=== PATIENT | female | born 1990 | race Caucasian/White ===

== ENCOUNTER 2024-09-16 15:19 | Day surgery (SDC) | payer OTHER, SELFPAY ==
[2024-09-16] VITALS (7 sets, daily range): BP systolic 127–143; BP diastolic 85–102; PULSE 63–98; RESP 14–18; TEMP 36.6–37.1; O2SAT 99–100; BMI 31.3
--- NOTE | 2024-09-16 15:48 | PD.EDRME ---
Rapid Medical Screening Exam RME Arrival date/time: 09/16/24 15:19 33-year-old female with no known medical history presents to the emergency room with a chief complaint of vaginal spotting and pelvic cramping. Patient states she was seen by her HIGH SCHOOL SPECIAL EDUCATION TEACHER Dr Barbosa and told she is having a spontaneous . Patient was told to come to the emergency room today if she began to develop vaginal bleeding or pelvic pain. I have greeted and performed a focused initial assessment of this patient. A comprehensive ED assessment and evaluation of the patient, analysis of all test results, and completion of the medical decision making process will be conducted by additional ED providers. Chief Complaint: Vaginal Bleeding Time Seen by Provider: 09/16/24 15:42 Vital signs: Vital Signs Temperature 98.7 F 09/16/24 15:45 Pulse Rate 98 09/16/24 15:45 Respiratory Rate 18 09/16/24 15:45 Blood Pressure 136/97 H 09/16/24 15:45 Pulse Oximetry (%) 100 09/16/24 15:45 Oxygen Delivery Method Room Air 09/16/24 15:45 Vital signs reviewed by provider: Yes
--- NOTE | 2024-09-16 16:21 | XR_ITS ---
Examination: OB Transvaginal ultrasound of the pelvis, complete Technique: Transvaginal sonographic images pelvis performed using pathak scale imaging Exam date and time: September 16, 2024 1625 hours INDICATIONS: Vaginal bleeding pelvic cramping today FINDINGS: Uterus 8.3 cm retroverted Intrauterine gestational sac pole 1.2 cm corresponds to 7 weeks 3 days gestational age No cardiac motion Uterine area of fibroid degeneration 41 mm Right ovary 2.4 cm arterial flow Left ovary 2.3 cm arterial flow IMPRESSION: Intrauterine gestation corresponding to 7 weeks 3 days gestational age No cardiac motion consistent with demise Recommend short-term follow-up pelvic sonography.
[2024-09-16 16:27] LABS: Basophils # (Auto) 0.1 Thou/mm3 (0.0-0.2); Basophils % (Auto) 1 % (0-2.5); Eosinophils # (Auto) 0.3 Thou/mm3 (0.0-0.5); Eosinophils % (Auto) 4 % (0-10); Hemoglobin 9.8 g/dL (12.0-16.0); Immature Granulocytes % (Auto) 0 % (0-0); Immature Granulocytes Auto 0.01 Thou/mm3 (0.00-0.00); Lymphocytes # (Auto) 1.9 Thou/mm3 (1.0-4.8); Lymphocytes % (Auto) 26 % (10-50); Mean Corpuscular HGB Conc 31.6 g/dl (31.0-37.0); Mean Corpuscular Hemoglobin 23.1 pg (25.0-35.0); Mean Corpuscular Volume 73 fL (80-100); Monocytes # (Auto) 0.4 Thou/mm3 (0.0-0.8); Monocytes % (Auto) 5 % (0-12); Neutrophils # (Auto) 4.8 Thou/mm3 (1.8-7.7); Neutrophils % (Auto) 64 % (37-80); Nucleated Red Blood Cell % 0 /100 WBC (0); Platelet Count 287 Thou/mm3 (140-440); RDW Standard Deviation 40.2 fL (36.4-46.3); Red Blood Count 4.24 Miln/mm3 (4.00-5.20); White Blood Count 7.5 Thou/mm3 (3.6-11.0)
[2024-09-16 16:54] LABS: Alanine Aminotransferase 14 U/L (10-49); Albumin, Serum 4.3 gm/dL (3.5-5.0); Albumin/Globulin Ratio 1.7 (1.2-2.2); Alkaline Phosphatase 74 U/L (46-116); Anion Gap 6 (7-16); Aspartate Amino Transferase 15 U/L (0-34); BUN/Creatinine Ratio 19 Ratio (12-20); Bilirubin,Total 0.3 mg/dL (0.3-1.2); Blood Urea Nitrogen 13 mg/dL (9-23); Calcium 9.1 mg/dL (8.3-10.6); Calcium (Corrected) 9.1 mg/dL (8.5-10.1); Carbon Dioxide 28.4 mMol/L (20.0-31.0); Chloride 105 mMol/L (98-107); Creatinine (Component) 0.7 mg/dL (0.6-1.3); Estimated Creatinine Clearance 132.2 mL/min (>60); Globulin 2.6 gm/dL (2.3-3.5); Glucose 84 mg/dL (74-106); Osmolality,Calculated 276 (275-295); Potassium 3.7 mMol/L (3.4-5.1); Sodium 139 mMol/L (136-145); Total Protein 6.9 gm/dL (5.7-8.2); eGFR > 60 See Note
[2024-09-16 17:09] LABS: Beta HCG,Quantitative 6918 mIU/mL (<5.0)
[2024-09-16 17:44] LABS: Collection Type, Urine Clean Catch
--- NOTE | 2024-09-16 18:42 | EDNOTE_ITS ---
ED OB Contraction Preg RMI/HPI General Chief complaint: Vaginal Bleeding Stated complaint: SENT BY OBGYN VAGINAL BLEEDING TODAY 11WK PREGN Time Seen by Provider: 09/16/24 15:42 Arrival date/time: 09/16/24 15:19 RME / HPI RME / HPI Narrative: 33-year-old female with no known medical history presents to the emergency room with a chief complaint of vaginal spotting and pelvic cramping. Onset of symptoms earlier today. Severity of symptoms mild. Patient states she was seen by her PATIENT CENTERED CARE SPECIALIST Dr Barbosa and told she is having a spontaneous . Patient was told to come to the emergency room today if she began to develop vaginal bleeding or pelvic pain. Denies any other complaints. Patient is 2 para 1. About 11 weeks . Related Data Allergies Allergy/AdvReac Type Severity Reaction Status Date / Time No Known Allergies Allergy Verified 09/16/24 15:22 Review of Systems Review of Systems Narrative Review of Systems: Review of system reviewed and within normal limits except mentioned in HPI ED Exam Narrative Physical exam: VITAL SIGNS: Reviewed. GENERAL APPEARANCE: Alert and interactive, follows commands, no acute distress, HEAD AND FACE: Non-traumatic. ENT: PERRL, pink conjunctivitis, eyelid no trauma, Mucous membrane moist. NECK: Supple, nontender, no nuchal rigidity. CHEST: No tenderness, no crepitus, no paradoxical movement, no retractions. LUNGS: Clear, well ventilated, symmetric, no rales, no wheezing, no ronchi, no stridor, good breath sounds bilaterally. HEART: Regular rate, regular rhythm, no murmur, no gallops. ABDOMEN: Soft, positive bowel sounds, nondistended, no guarding, nontender, no rebound, no masses, RECTAL: Deferred. GENITAL: Deferred. NEUROLOGICAL: Gross motor function intact sensory function intact, Appropriate f or age. MUSCULOSKELETAL: low back nontender, full range of motion. EXTREMITIES: Nontender, full range of motion. SKIN: Color pink, dry, no rash, no lacerations, no abrasions, no contusions. LYMPHATICS: Deferred. Course Quality Measures none Orders Category Date Time Status COVID-19 Screening Questionnaire NOW Care 09/16/24 18:46 Active Decision to Admit X1 Care 09/16/24 18:46 Active IV [Insert IV] STAT Care 09/16/24 18:46 Active US OB transvaginal Stat Exams 09/16/24 16:21 Completed ABO/RH Type Stat Lab 09/16/24 16:00 Completed Beta HCG,Quantitative Stat Lab 09/16/24 16:00 Completed CBC Stat Lab 09/16/24 16:00 Completed CMP [Comprehensive Metabolic Panel] Stat Lab 09/16/24 16:00 Completed UA [Urinalysis] Stat Lab 09/16/24 17:37 Received Vital Signs Vital signs: Vital Signs Temperature 98.7 F 09/16/24 15:45 Pulse Rate 98 09/16/24 15:45 Respiratory Rate 18 09/16/24 15:45 Blood Pressure 136/97 H 09/16/24 15:45 Pulse Oximetry (%) 100 09/16/24 15:45 Oxygen Delivery Method Room Air 09/16/24 15:45 Vaginal Bleeding MDM Narrative MDM Narrative: 33-year-old female with no known medical history presents to the emergency room with a chief complaint of vaginal spotting and pelvic cramping. Onset of symptoms earlier today. Severity of symptoms mild. Patient states she was seen by her PATIENT CENTERED CARE SPECIALIST Dr Barbosa and told she is having a spontaneous . Patient was told to come to the emergency room today if she began to develop vaginal bleeding or pelvic pain. Denies any other complaints. Patient is 2 para 1. About 11 weeks . Ultrasound of showed about 7 weeks gestation, with no cardiac activity noted. Patient's hemoglobin was noted to be 9.8, hematocrit of 31. Patient's hCG today was noted with [id number] Barbosa, who will examine the patient in the emergency room and for D&C Patient data External records reviewed:: None Clinical information provided by:: patient Social determinants that could affect healthcare access:: none Patient has the following chronic illnesses:: None How is presenting disease/condition affected by chronic disease/condition?: no chronic disease Evaluation data The following diagnostics were reviewed and interpreted by me:: lab results and radiology exam(s) Lab and/or radiology exams considered but not ordered:: None Interpretation Summary: See results in MDM Medications / Prescriptions Medications or Prescriptions considered but not ordered:: None Medication administrations:: None Consultations Consultation(s) initiated? (list below): Yes Consultation #1 (Physician, Specialty, Details): Dr Barbosa, PATIENT CENTERED CARE SPECIALIST thank you Diagnosis Vaginal Bleeding Differential Diagnosis: missed , threatened , incomplete and other (Missed ) Most likely diagnosis given after review of the tests above:: Missed Admission Indicated Admission indicated?: indicated Explain why admission is indicated or not indicated:: For D&C Admission Request Was there a request for admission?: Yes Admission Attestation Admission request attestation: Dr Barbosa agrees to accept the patient for admission. Disposition Plan Disposition Plan: Admit Discharge Plan Prescriptions/Referrals Referrals: No Primary/Family,Physician [Primary Care Provider] - In 1 week Problem List Clinical Impression: Missed Patient/Caregiver Discharge Instructions Print Language: South African
[2024-09-16 18:48] LABS: Bilirubin,Urine Negative (Negative); Blood,Urine 2+ (Negative); Clarity,Urine Clear (Clear/Hazy); Color,Urine Yellow (Lt Yel-Yel); Glucose, Urine Negative (Negative); Ketones,Urine Negative (Negative); Leukocyte Esterase,Urine Negative (Negative); Nitrite,Urine Negative (Negative); Protein,Urine Negative (Neg - Trace); RBC,Urine 4 /hpf (0-3); Specific Gravity,Urine 1.024 (1.001-1.035); Squamous Epithelial Cell,Urine 1 /hpf (0-5); Urobilinogen,Urine Negative mg/dL (0.0-1.0); WBC,Urine 2 /hpf (0-5)
--- NOTE | 2024-09-16 19:25 | ESHP_ITS ---
Documentation for date of: 09/16/24 SERVICE DEVELOPER - HPI History of Present Illness Reason for admission: vaginal bleeding History of present illness: Ms. OAKLEY is a 33 year old -0-0-1 at 11 weeks by LMP but only 7-3/7 weeks gestational age by ultrasound with a missed miscarriage. She was going to see me as an outpatient in the office today but started bleeding and was sent to the ER. In the ER her blood type is a positive her hemoglobin is 9.4 and patient is having some irregular vaginal bleeding she is consented for a suction dilation and curettage Review of Systems Review of Systems Systems Reviewed: All systems reviewed, normal except as documented Narrative Review of Systems: Patient reports cramping and bleeding passing some clots she is not hemorrhaging but she is consistently bleeding starting today. No fevers chills no foul vaginal odor. She has at least 2 outside ultrasounds revealing a 7-week IUP with no heart tones Past Medical History Past Medical History CARDIAC: Positive Hypertension (On no medications) GASTROINTESTINAL: Positive Obesity (Status post gastric sleeve surgery 2 years ago) REPRODUCTIVE: Positive Fibroids (One 4 cm fibroid seen on transvaginal ultrasound today) OTHER HISTORY: Positive Hospitalization (Patient admitted 4 years ago for a vaginal delivery. ) Surgical History SURGICAL: Positive Gastric Bypass Surgery (Gastric sleeve performed 2 years ago) Social History SMOKING STATUS: Never smoker SECOND HAND EXPOSURE: No SUBSTANCE USE: does not use HOUSING: House LIVES WITH: Family Meds Home Medications and Allergies Allergies Allergy/AdvReac Type Severity Reaction Status Date / Time No Known Allergies Allergy Verified 09/16/24 15:22 Exam - SERVICE DEVELOPER Vital Signs Temp Pulse Resp BP Pulse Ox O2 Del Method 98.7 F 98 18 136/97 H 100 Room Air 09/16/24 15:45 09/16/24 15:45 09/16/24 15:45 09/16/24 15:45 09/16/24 15:45 09/16/24 15:45 Narrative Exam Patient is alert cooperative tearful due to miscarriage and crampy pain. Constitutional Constitutional: mild distress and cooperative Routine Respiratory Exam Respiratory: Present chest non-tender, lungs clear, normal breath sounds and no resp distress Routine Cardiovascular Exam Cardiovascular: Present RRR Routine Abdominal Exam Abdominal: Present soft and normoactive bowel sounds Detailed Pelvic Exam Uterus: Present enlarged (Uterus enlarged to 8 weeks size) Routine Extremities Exam Comments: No significant cyst edema noted Routine Skin Exam Skin: Present intact and dry Routine Psychiatric Exam Psychiatric: Present normal affect and normal thought process SERVICE DEVELOPER - Results Labs 09/16/24 16:00 09/16/24 16:00 Labs: Short CBC 09/16/24 Range/Units 16:00 WBC 7.5 (3.6-11.0) Thou/mm3 Hgb 9.8 L (12.0-16.0) g/dL Hct 31.0 L (36.0-46.0) % Plt Count 287 (140-440) Thou/mm3 BMP 09/16/24 16:00 Sodium 139 Potassium 3.7 Chloride 105 Carbon Dioxide 28.4 BUN 13 Creatinine 0.7 Glucose 84 Calcium 9.1 Liver Function 09/16/24 Range/Units 16:00 Total Bilirubin 0.3 (0.3-1.2) mg/dL AST 15 (0-34) U/L ALT 14 (10-49) U/L Alkaline Phosphatase 74 (46-116) U/L Albumin 4.3 (3.5-5.0) gm/dL Urine 09/16/24 Range/Units 17:37 Urine Color Yellow (Lt Yel-Yel) Urine Clarity Clear (Clear/Hazy) Urine pH 6.0 (5.0-7.0) Ur Specific [place] 1.024 (1.001-1.035) Urine Protein Negative (Neg - Trace) Urine Glucose (UA) Negative (Negative) Assessment and Plan Assessment and plan (1) Incomplete : Status: Acute Additional Assessment & Plan Additional Plan: Intrauterine at 7-4/7-week with incomplete AB. Patient is experiencing painful cramping and some bleeding. At this point she desires to proceed with proceed with a Suction Dilation and Curettage. Patient was consented for the procedure. She understands the risk of bleeding, infection, uterine perforation, prolonged hospital stay should any further complications occur. She understands if she loses a lot of blood she will be transfused and did sign a blood transfusion consent. All questions were answered all consents were signed. Her blood type is A positive. Quality Measures Quality Measures none
[2024-09-16] MEDS: ceFAZolin 1 GM in SODIUM CHLORIDE 0.9% 100 ML IV (20:15)
--- NOTE | 2024-09-16 20:20 | PC.NURSE ---
Report given to [facility] pt taken to OR by OR staff
[2024-09-16] MEDS: METOCLOPRAMIDE INJ 5 MG/ML VIAL 2 ML 10 MG IVP (20:41)
[2024-09-16] MEDS: FAMOTIDINE INJ 10 MG/ML VIAL 2 ML IVP (20:43)
--- NOTE | 2024-09-16 21:19 | SUR.PHASEII ---
pt received from OR in recovery bay 1. pt awake and alert, breathing unlabored on room air. v/s stable. pt dressing peripad cdi. report received from Dr. Vazquez and Kennedy WALLIS.
--- NOTE | 2024-09-16 21:35 | PD.GYNDS ---
Planned Discharge Date 09/16/24 DS: Providers Provider Primary care physician: Physician No Primary/Family Attending Provider on Admission: Edna Barbosa MD Attending Provider on DC: Edna Barbosa MD Discharging Provider: Edna Barbosa MD Anticipated date of discharge: 09/16/24 DS: Diagnosis Discharge Diagnosis (1) Vaginal bleeding: Status: Acute (2) Incomplete : Status: Acute Problem List Completed Was Problem List Reviewed/Reconciled?: Yes Hospital Course Hospital Course Hospital course: Ms. OAKLEY is a 33 year old -0-0-1 at 11 weeks by LMP but only 7-3/7 weeks gestational age by ultrasound with a missed miscarriage. She was going to see me as an outpatient in the office today but started bleeding and was sent to the ER. In the ER her blood type is a positive her hemoglobin is 9.4 and patient is having some irregular vaginal bleeding she is consented for a suction dilation and curettage. Pt underwent an uncomplicated D and C EBL minimal Status at Discharge Functional status at discharge: independent ambulation Overall status at discharge: patient is progressing back to baseline Time Spent with Patient Time attestation: Total time spent providing and/or coordinating discharge services: Specific discharge activities: pelvic rest x 6 weeks Exam - FIELD MARKETING TEAM LEADER Vital Signs Temp Pulse Resp BP Pulse Ox O2 Del Method 98 F 68 14 140/101 H 100 Room Air 09/16/24 21:19 09/16/24 21:19 09/16/24 21:19 09/16/24 21:19 09/16/24 21:19 09/16/24 19:59 Detailed Pelvic Exam Uterus: Present enlarged (retroverted, 6-7 week size) Discharge Plan Plan Patient Disposition: HOME (Self Care) Disposition Comment: stable Problem List Clinical Impression: Missed , Incomplete , Vaginal bleeding Patient/Caregiver Discharge Instructions Discharge Activity: resume usual activities Other Activity Instructions:: pelvic rest x 2 weeks Diet Instructions: General
--- NOTE | 2024-09-16 22:03 | SUR.PHASEII ---
pt awake and alert, breathing unlabored on room air. v/s stable. pt dressing peripad cdi. pt able to ambulate to wheelchair with steady gait. d/c instructions given with Bhavin in room, all questions answered. pt d/c via wheelchair with all belongings.
--- NOTE | 2024-09-16 22:17 | PD.GYNPROC ---
Operative Note - CLASSROOM ASSISTANT Procedure Date of procedure: 09/16/24 Procedure Performed: Suction dilation and curettage Indication: Incomplete AB with cramping and bleeding Pre-Op diagnosis: 1. Intrauterine at 7-4/7 weeks 2. Incomplete AB 3. A positive blood type Post-Op diagnosis: Same Anesthesia type: Conscious sedation Procedure description: After obtaining informed consent, the patient was brought back to the operating room and conscious sedation administered. She was prepped and draped in the dorsal lithotomy position using candy cane stirrups in a normal sterile fashion. The patient's bladder was emptied with an in and out catheter. The patient was given 2 g of Ancef by anesthesia. A weighted speculum was inserted into the patient's vagina and the anterior lip of the cervix grasped with a single-tooth tenaculum at the 12 o'clock position. The cervix was gently dilated using Hegar dilators to a size 8. A size 7 suction curette was introduced to the fundus of the uterus and the suction activated. The suction was gently rotated to clear the uterus of any products of conception. A wide loop and endomedial curette was then used to gently curette the uterus to to clear the uterus of any remaining products of conception. The suction curettage was introduced one more time and the uterus cleared of any remaining clots and debris. At the end of the procedure all instrumentation was removed from the patient's vagina and the tenaculum site noted to be hemostatic after placement of silver nitrate on the cervix. The patient tolerated the procedure well, instrument, sponge, lap, and needle counts were correct x 2 .The patient went to the recovery area awake and in stable condition Fluids: crystalloid Fluid amount (mL): 300 Urine output (mL): 100 Specimen: other (Products of conception) Implants: none Estimated blood loss (ml): 50 Findings: Uterus retroverted 7 weeks size moderate amounts of products of conception obtained. Complications: none Surgical staff Operation Date: 09/16/24 17:45 <No data on this case meets the specified criteria> Diagnosis Discharge Diagnosis (1) Vaginal bleeding: Status: Acute (2) Incomplete : Status: Acute Problem List Completed Was Problem List Reviewed/Reconciled?: Yes
== END 2024-09-16 22:03 | disposition home or self-care (01) ==
LOC: SERX 19:13 → S2EX 20:29
PROVIDERS: Nurse Practitioner Family; Emergency Provider Emergency Medicine; Referring Provider Obstetrics & Gynecology; Visit Provider Obstetrics & Gynecology
PROC: (CPT 58120; principal; 2024-09-16 17:30)
DX: O03.4 Incomplete spontaneous abortion without complication (principal); O99.841 Bariatric surgery status complicating pregnancy, first trimester; Z3A.11 11 weeks gestation of pregnancy; O10.911 Unspecified pre-existing hypertension complicating pregnancy, first trimester
CPT/HCPCS: 59812; 36415; 76817; 80053; 81001; 84702; 85025; 86900; 86901; 99285; A4217; J0690; J1885; J2250; J2405; J2704; J2765; J3490; J7050

== ENCOUNTER 2024-09-23 15:14 | Outpatient (AMB) | payer OTHER, SELFPAY ==
[2024-09-23 15:30] VITALS: BP 149/89; PULSE 93; RESP 16; TEMP 36.2; O2SAT 99
--- NOTE | 2024-09-23 15:30 | AMB.GYNCLNOT ---
Vital Signs 09/23/24 15:30 Weight 93.043 kg Weight Measurement Method Standing Scale BP 149/89 H Blood Pressure Source Automatic Cuff Blood Pressure Location Left Upper Arm Position Sitting Respiration 16 Pulse 93 Pulse Source Monitor Temp 97.2 F Temp Source Oral Pulse Oximetry (%) 99 Oxygen Delivery Method Room Air Allergies/Home Meds Allergies & Medications Allergies No Known Allergies Allergy (Verified 09/23/24 15:31) Medication Reconciliation No Known Home Medications 09/23/24 [History Confirmed 09/23/24] Intake Visit Data Collection New Patient or Established: Established Patient (seen at [facility] within 3 years) Reason for Visit:: Post operative check Consent obtained for Telemed Visit: No Seen by Clinical Staff ONLY (RN/MA): No Director Of Counterintelligence Required: No Do You Feel Safe at Home: Yes Authorities Contacted: N/A PCP or OBGYN visit in last 3 months: Yes Date of Last PCP or OBGYN visit: 09/16/24 Hx Now: No Are you currently on any form of Control: No Pain Present Currently: No Pain Scale Used: Jean-Baptiste-Page/Numerical Pain scale:: 0 Smoking Status Smoking Status: Never smoker 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 1. Little interest or pleasure in doing things: not at all 2. Feeling down, depressed, or hopeless: not at all Total score: 0 PHQ-9 3. Trouble falling or staying asleep, or sleeping too much: Not at all 4. Feeling tired or having little energy: Not at all 5. Poor appetite or overeating: Not at all 6. Feeling bad about yourself - or that you are a failure or have let yourself or your family down: Not at all 7. Trouble concentrating on things, such as reading the newspaper or watching television: Not at all 8. Moving or speaking so slowly that other people could have noticed? - Or the opposite - being so fidgety or restless that you have been moving around a lot more than usual: not at all 9. Thoughts that you would be better off or of hurting yourself in some way: Not at all Total score: 0 If you checked off any problems, how difficult have these problems made it for you to do your work, take care of things at home, or get along with other people?: not difficult at all Source: Developed by Drs. Marcelo Horne, Monica Frey, Delmar Woo and colleagues, with an educational kayli from [employer]. Depression screen completed yes Social History Living Situation History Marital Status: Lives With: Family Housing: House Tobacco History Smoking Status: Never smoker Second Hand Smoke Exposure: No Alcohol History Alcohol Intake: Never Domestic Abuse History Do You Feel Safe at Home: Yes Past Medical History Past Medical History Have you ever been diagnosed with any of the following: Neurological Problems Transient Ischemic Attacks (TIA): No Seizures: No Guillain-Hudson Syndrome: No Migraine: No Cardiology Problems Cardiac Arrhythmia: No Heart Murmur: No Hypercholesterolemia: No Hypertension: Yes (On no medications) Varicose Veins: No Respiratory Problems Asthma: No Sleep Apnea: No Stomache/Intestinal Problems Gall Bladder Disease: No Irritable Bowel: No Gastroesophageal Reflux Disease: No Obesity: Yes (Status post gastric sleeve surgery 2 years ago) Genital/Urinary Problems Chronic Kidney Disease: No Kidney Stones: No Reproductive Problems Breast Cancer: No Endometriosis: No Fibroids: Yes (One 4 cm fibroid seen on transvaginal ultrasound today) Genital Herpes: No Gonorrhea: No Pelvic Inflammatory Disease: No Polycystic Ovarian Syndrome: No Previous Pregnancies: Yes ( 2020) Musculoskeletal Problems Arthritis: No Rheumatoid Arthritis: No Fibromyalgia: No Endocrine Problems Diabetes Mellitus Type 2: No Hyperthyroidism: No Hypothyroidism: No Systemic Lupus Erythematosus: No Blood Problems Anemia: Yes Clotting Problems: No Psychologic Problems Depression: No Anxiety: No Other Problems Hospitalization: Yes (Patient admitted 4 years ago for a vaginal delivery. ) Autoimmune Disease: No Blood Transfusions: No Blood Transfusion Reaction: No Anesthesia Reactions: No Surgical History Bariatric Surgery: Yes (Gastric sleeve 2 years ago) Breast Surgery: No Additional Surgical History: Suction D&C 09/16/2024 History of Present Illness HPI Narrative The patient is a 33-year-old -0-1-1 status post suction D&C 09/16/2024 for a 7 to 8-week missed AB. Patient states 3 days after surgery she passed clots and what she thought might have been tissue since then she has had very little bleeding. She stayed in bed all weekend and had cramps but she feels much better now. She denies any fevers chills foul discharge or heavy vaginal bleeding. Patient stated the first month that they were trying to get she got . She has a 4-year-old daughter at home. Review of Systems Review of Systems Narrative Review of Systems: Patient reports some vaginal bleeding with clots. No foul discharge. No fevers or chills. She is sad about the miscarriage and is grieving appropriately. Systems Reviewed: All systems reviewed, normal except as documented Exam General Limitations: no limitations General Appearance: alert, in no apparent distress, cooperative, healthy appearing and well groomed Head Head exam: atraumatic, normocephalic and normal inspection Abdominal Abdominal exam: Present soft and normal bowel sounds Psych Psychiatric exam: Present normal affect and normal mood Skin Skin exam: Present warm, dry, intact and normal color Assessment & Plan Diagnosis / Problem List (1) Vaginal bleeding: Status: Acute (2) Post-operative state: Status: Acute Assessment and Plan: Postop week #1 status post suction dilation and curettage. No postop complications are seen. Patient was encouraged to continue continue pelvic rest for 1 week. She is to then check a test at home if it is positive she should call for a quantitative hCG. I recommended condom use until patient has 2 normal cycles and then she can try again for . (3) Incomplete : Status: Acute Additional Plan Follow Up: 6 Months Office Procedures OB Clinic LOC & Office Proc's Nursing/Assessment Patient Status: Established Patient OB Clinic Nursing Assessment: BP Monitoring, Medication Reconciliation, Update PMH in EMR and Vital Signs OB Clinic Coordination of Care: Consent,records obtained, informed consent, Education Simp Pt/Fam, Lab and Imaging orders and Staff clarify orders Established Patient Charge Established Patient Point Assignment: 90 Established Patient Point Charge: EP Level 3 (80-115)
== END 2024-09-23 16:00 | disposition home or self-care (01) ==
LOC: HODSOBC 15:14
PROVIDERS: Supervising Provider Obstetrics & Gynecology; Visit Provider Obstetrics & Gynecology
DX: Z09 Encounter for follow-up examination after completed treatment for conditions other than malignant neoplasm (principal)
CPT/HCPCS: 99213; G0463